=== PATIENT | female | born 1995 | race Two or more races ===

== ENCOUNTER 2023-09-15 12:43 | Emergency (ER) | payer OTHER, BC ==
[2023-09-15 12:54] VITALS: BP 119/74; PULSE 72; RESP 18; TEMP 98.3; BMI 22.4
[2023-09-15] MEDS ORDERED: ACETAMINOPHEN 500 MG TABLET (FP) PO ONE (13:22)
[2023-09-15] MEDS ORDERED: ACETAMINOPHEN 325 MG TABLET (FP) ONE (13:25)
== END 2023-09-15 13:38 | disposition home or self-care (01) ==
LOC: JER 12:43 → JERFT 12:43
DX: S40.211A Abrasion of right shoulder, initial encounter (principal); S60.512A Abrasion of left hand, initial encounter; S80.212A Abrasion, left knee, initial encounter; S80.211A Abrasion, right knee, initial encounter; V03.90XA Pedestrian on foot injured in collision with car, pick-up truck or van, unspecified whether traffic or nontraffic accident, initial encounter; Y92.410 Unspecified street and highway as the place of occurrence of the external cause
CPT/HCPCS: 99282-25